=== PATIENT | male | born 1980 | race Caucasian/White ===

== ENCOUNTER 2024-05-11 13:13 | Emergency (ER) | payer BC, SELFPAY ==
[2024-05-11] VITALS (10 sets, daily range): BP systolic 112–145; BP diastolic 61–99; PULSE 61–63; BMI 28.2
[2024-05-11 13:47] LABS: % Basophils 0.2 % (0-2); % Eosinophils 0.7 % (0-6); % Immature Granulocytes 0.5 % (0-0.5); % Lymphocytes 28.7 % (20.5-51.1); % Monocytes 5.5 % (1.7-9.3); % Neutrophils 64.4 % (42.2-75.2); Absolute Eosinophils 0.1 10^3/uL (0-0.7); Absolute Lymphocytes 2.4 10^3/uL (1.2-3.4); Absolute Monocytes 0.5 10^3/uL (0.1-0.6); Absolute Neutrophils 5.3 10^3/uL (1.4-6.5); Hematocrit 45.9 % (39.0-52.0); Hemoglobin 15.9 g/dL (13.0-18.0); Mean Corp Hgb Conc. 34.6 g/dL (33.0-37.0); Mean Corpuscular Hgb 30.9 pg (27.0-31.0); Mean Corpuscular Volume 89.1 fL (80.0-94.0); Mean Platelet Volume 9.7 fL (7.4-10.4); Nucleated Red Blood Cells % 0 % (-); Platelet Count 248 10^3/uL (130-400); Red Blood Cell Count 5.15 10^6/uL (4.70-6.10); Red Cell Dist. Width 11.9 % (11.5-14.5); White Blood Cell Count 8.2 10^3/uL (4.8-10.8)
[2024-05-11 13:55] LABS: ALT (SGPT) 27 U/L (0-50); AST (SGOT) 26 U/L (17-59); Albumin 4.8 g/dl (3.5-5.0); Alkaline Phosphatase 75 U/L (38-126); Blood Urea Nitrogen 28 mg/dl (9-20); Calcium 9.6 mg/dl (8.4-10.2); Carbon Dioxide 28 mmol/L (22-30); Chloride 102 mmol/L (98-107); Glucose 101 mg/dl (70-99); Potassium 4.7 mmol/L (3.5-5.1); Sodium 137 mmol/L (135-145); Total Bilirubin 0.7 mg/dl (0.2-1.3); Total Protein 7.6 g/dl (6.3-8.2); eGFR > 60.00
[2024-05-11 13:56] LABS: COVID-19 Antigen Negative (Negative)
--- NOTE | 2024-05-11 15:39 | ED.GENMED ---
History of Present Illness
<Brenda Thakkar PA-C - Last Filed: 05/12/24 23:18>
General
Chief Complaint: Dizziness
Source: patient
Exam Limitations: none
Time Seen by Provider: 05/11/24 15:37
Nursing documentation reviewed up to this point in time: agreed with
History of Present Illness
History of Present Illness:
This is a 43-year-old male with past medical history of hypertension who presents emergency department today with concerns of 1 week of dizziness and blurry vision. Patient reports that this started a week ago. He notes his symptoms most notably
when he stands from a sitting position. He states that they tend to get better later in the day. He is also had daily headaches the past week as well. At the beginning of the week, he has severe migraine. Does have a history of migraines but has
never had formal neurologic imaging for this. He denies any syncopal episodes. He reports that he worked out today and afterwards, he feels like his sensation of lightheadedness got worse. He describes the sensation as feeling foggy in the head.
He denies any presyncope. He denies any sensation of vertigo. He denies any trouble swallowing or trouble speaking. He denies any numbness or tingling his extremities. He denies any recent head or neck trauma. He denies any neck pain. He
denies any injury or trauma to the eye. He denies any eye pain.
Review of Systems
<Brenda Thakkar PA-C - Last Filed: 05/12/24 23:18>
Review of Systems
All Other Systems: ROS reviewed and negative except as documented in HPI and ROS
Phy Exam
<Brenda Thakkar PA-C - Last Filed: 05/12/24 23:18>
Physical Exam
Physical Exam:
General: Patient is well appearing and in no acute distress; non-toxic
Skin: Warm and dry, no rashes or lesions
Head: Normocephalic, atraumatic
Eyes: Sclera non-icteric. EOMs intact.
Cardiac: Regular rate and rhythm, no murmurs
Peripheral Vascular: No lower extremity swelling or edema
Pulm: Normal respiratory effort, no wheezes, rales, rhonchi
Abdomen: No abdominal tenderness to palpation
Neuro: CN II-XII intact, no focal neurologic deficits. Normal finger-nose, normal heel puente. 5 of 5 strength in bilateral upper and lower extremity
Psychiatric: Appropriate mood and affect.
Course
<Brenda Thakkar PA-C - Last Filed: 05/12/24 23:18>
Orders/Labs/Results
Orders:
Orders
05/11/24 13:19
Electrocardiogram (*1) Urgent
Reason for Study: Other
Other Reason for Exam: Possible Stroke
EKG- Treatment ONCE
05/11/24 13:28
COVID-19 Antigen Urgent
Source: Nasal Swab
Complete Blood Count/With Diff Urgent
Comprehensive Metabolic Panel Urgent
TSH Reflex To Free T4 Urgent
Comment: ADD ON
Influenza A+B Rapid Molecular Urgent
[facility] Source: Nasal Swab
Specimen Description:
05/11/24 16:03
Orthostatic VS- Treatment ONCE
Visual Acuity- Treatment ONCE
05/11/24 16:53
CT Head W/o Iv Contrast Urgent
Comment:
Reason For Exam: headaches, dizziness
05/11/24 16:58
Add On- LAB Urgent
Tests Added?: tsh reflex t4
Abnormal Lab Results
05/11/24
13:28
BUN 28 H mg/dl
(9-20)
Glucose 101 H mg/dl
(70-99)
05/11/24 13:28
05/11/24 13:28
Vital Signs
Initial and Last Documented VS:
Initial Vital Signs
Temp Pulse Resp BP Pulse Ox
98.2 F 88 16 142/98 98
05/11/24 13:15 05/11/24 13:15 05/11/24 13:15 05/11/24 13:15 05/11/24 13:15
Last Documented Vital Signs
Temp Pulse Resp BP Pulse Ox
98 F 57 15 122/67 97
05/11/24 19:36 05/11/24 22:03 05/11/24 22:03 05/11/24 22:03 05/11/24 18:00
<Alfie Oquendo, DO - Last Filed: 05/11/24 22:09>
Orders/Labs/Results
Orders:
Orders
05/11/24 13:19
Electrocardiogram (*1) Urgent
Reason for Study: Other
Other Reason for Exam: Possible Stroke
EKG- Treatment ONCE
05/11/24 13:28
COVID-19 Antigen Urgent
Source: Nasal Swab
Complete Blood Count/With Diff Urgent
Comprehensive Metabolic Panel Urgent
TSH Reflex To Free T4 Urgent
Comment: ADD ON
Influenza A+B Rapid Molecular Urgent
[facility] Source: Nasal Swab
Specimen Description:
05/11/24 16:03
Orthostatic VS- Treatment ONCE
Visual Acuity- Treatment ONCE
05/11/24 16:53
CT Head W/o Iv Contrast Urgent
Comment:
Reason For Exam: headaches, dizziness
05/11/24 16:58
Add On- LAB Urgent
Tests Added?: tsh reflex t4
Abnormal Lab Results
05/11/24
13:28
BUN 28 H mg/dl
(9-20)
Glucose 101 H mg/dl
(70-99)
05/11/24 13:28
05/11/24 13:28
Vital Signs
Initial and Last Documented VS:
Initial Vital Signs
Temp Pulse Resp BP Pulse Ox
98.2 F 88 16 142/98 98
05/11/24 13:15 05/11/24 13:15 05/11/24 13:15 05/11/24 13:15 05/11/24 13:15
Last Documented Vital Signs
Temp Pulse Resp BP Pulse Ox
98 F 57 15 122/67 97
05/11/24 19:36 05/11/24 22:03 05/11/24 22:03 05/11/24 22:03 05/11/24 18:00
<Brenda Thakkar PA-C - Last Filed: 05/12/24 23:18>
MDM/Problems Addressed
Differential Diagnosis Includes:
Differentials include migraine headache, dysrhythmia, electrolyte derangement, BPPV, vestibular neuritis, idiopathic intracranial hypertension
MDM/Problems Addressed:
43-year-old male past medical Struve hypertension presents emergency department today with concerns of headaches, dizziness, and blurry vision. Currently he denies any headaches. On physical exam he is well-appearing in no acute distress he is no
focal neurologic deficits. Will obtain CT of the head as pt has had no prior neurologic imaging.
CT of the head negative. Patient stable for discharge.
<Alfie Oquendo DO - Last Filed: 05/11/24 22:09>
*Radiology
Radiology exam reviewed: radiology read reviewed (CT head no acute findings)
*Pulse Oximetry
Patient hypoxic: no
*Critical Care Note
Total Time (30-74mins, 75-104mins- exclusive of procedures): Not Applicable
<DO Juan R Alegria Last Filed: 05/11/24 22:09>
Patient Management
Social determinants of health affecting care: Living situation and Strong social support
Escalation/DeEscalation of care consider admission/obs:
Admission not indicated
ED Attending Note
<Brenda Thakkar PA-C - Last Filed: 05/12/24 23:18>
-
Portions of this chart may have been created with voice recognition software.� Occasional wrong word or��sound alike� substitutions may have occurred due to the inherent limitations of voice recognition software.
<Alfie Oquendo DO - Last Filed: 05/11/24 22:09>
ED Attending Note
Patient seen and examined by attending physician: Yes
I performed a history and physical exam of patient and discussed management with resident, I reviewed resident's note and agree with documented findings and plan of care.: Yes
ED Attending Note:
I have reviewed and agree with Brenda Thakkar's treatment plan. My exam revealed
Physical Exam
General: no apparent distress, not acutely ill
Neck: supple. no meningeal signs. normal posterior pharynx
Heart: s1/s2 regular rate and rhythm, no murmur. equal radial
pulses.
HEENT: Pupils equal round reactive to light, EOMI
Lungs: no acute respiratory distress. clear bilaterally
Abdomen: normal bowel sounds. not tender. no CVAT
Neuro: alert and oriented. no focal neurological deficits cranial nerves II through XII intact
Skin: no rash
Psychiatric: well kept. interactive and cooperative
Extremities: no edema. no calf tenderness. negative homans. good distal pulses
Suspect migraine headache versus mild hypovolemia. CT, as patient has never had neuroimaging.
Discharge Plan
Departure
Patient Disposition: Home (Routine Discharge)
Date of Disposition: 05/11/24
Time of Disposition: 22:04
Patient with high blood pressure during this ER visit?: Yes
Condition: Good
Discharge Problem:
Headache
Instructions: Headaches in adults, BLOOD PRESSURE
Prescriptions:
No Action
dextroamphetamine-amphetamine [Adderall] 10 mg Tablet
10 mg PO BID
finasteride 1 mg Tablet
1 mg PO DAILY
olmesartan 20 mg Tablet
20 mg PO DAILY
Referrals:
[facility] [Other] - Call in 1-3 days for appt
Interventions
Interventions:
*Risk Screen - Suicide Last Done: 05/11/24 13:15
*General Assessment Last Done: 05/11/24 18:57
*Neglect/Abuse Screening Last Done: 05/11/24 13:15
ED- Fall Risk Assessment Last Done: 05/11/24 19:44
*ED COVID-19 Vaccine History Last Done: 05/11/24 19:01
*Nursing Disposition Last Done: 05/11/24 22:11
ED- Neurological Assessment Last Done: 05/11/24 19:44
ED- Cardiac Assessment Last Done: 05/11/24 19:44
ED Swallowing Screen Last Done: 05/11/24 16:36
Discharge Date and Time
Discharge Date/Time: 05/11/24 22:11
Print Language: ALBANIAN
[2024-05-11 18:19] LABS: TSH Reflex To Free T4 1.85 uIU/ml (0.47-4.68)
--- NOTE | 2024-05-11 19:31 | EDRN ---
Pt has had 1 week of fatigue, dizziness and headaches. Pt noted he was lightheaded when he stood up today, took his bp and it was lower than usual. Pt called tele med few days ago and was advised to come to the ED which he did not do. Pt called
urgent care and instructed to go to ED today. Pt feels he has pressure in his sinus and that may be causing his symptoms. Pt feels tired now, better than earlier today. Pt has slight headache now 'nothing major' but 'that could be from being
tired.' No photophobia, n/v (had nausea earlier). Pt has lost weight since he started olmesartan 'months' ago and says he has probably lost 20-30 pounds and questions if he still needs bp mediation, maybe it is causing his bp to be too low now.
== END 2024-05-11 22:11 | disposition home or self-care (01) ==
LOC: EMR 13:13
PROVIDERS: Emergency Medicine; EMERGENCY PHYSICIAN Emergency Medicine
DX: R51.9 Headache, unspecified (principal); I10 Essential (primary) hypertension
CPT/HCPCS: 99284; 70450; 80053; 84443; 85025; 87502; 87811; 93005